=== PATIENT | male | born 1970 | race Caucasian/White ===

== ENCOUNTER 2021-08-09 12:14 | Inpatient (IN) ==
[2021-08-09] MEDS ORDERED: LORazepam 2 MG/4 ML VIAL IV STA (12:27)
[2021-08-09] MEDS ORDERED: MULTI-VITAMIN INFUSION 10 ML, THIAMINE HCL 100 MG, FOLIC ACID 1 MG in SODIUM CHLORIDE 0... IV ONE (12:27)
--- NOTE | 2021-08-09 12:33 | Emergency Department Note ---
History of Present Illness General Chief complaint: Detox Request Stated complaint: DETOX REQUEST,SEIZURES Time Seen by Provider: 08/09/21 12:22 Source: patient Mode of arrival: ambulatory Limitations: no limitations History of Present Illness Maximum Pain Intensity: 5 This patient is an alcoholic, comes in complaining of withdrawal and detox request. He says that his last drink was a couple hours ago has been drinking about a half a gallon a day. He had been sober until about a month ago he has been in detox multiple times has had seizures in the past and was getting shaky so he was worried he could have a seizure again. He has been trying to cut down. He does use marijuana but no other drugs. Denies any suicidal ideations he has had some vomiting. No chest pain or shortness of breath. No focal num bness weakness. Denies aspirin and Tylenol usage. 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 Family History (Updated 08/09/21 @ 17:33 by Radames Sin MD) Mother No problems noted. Social History Smoking Status: Current every day smoker Feels Safe at Home: Yes Immunizations: Past medical historybilateral hip replacement. Alcoholism Social history he drinks heavily. He has been admitted to rehab several times Review of Systems A total of 10 systems reviewed and were otherwise negative Physical Exam Vital Signs Vital Signs - 24 hr 08/09/21 12:15 08/09/21 12:52 08/09/21 13:12 Temperature 36.7 C Temperature Source Temporal Artery Scan Pulse Rate 101 H 88 Pulse Rate from SpO2 Sensor 87 Respiratory Rate 18 17 Blood Pressure 141/87 H 124/82 Blood Pressure Mean 105 96 Pulse Oximetry 95 92 90 Oxygen Delivery Method Room Air Room Air Oxygen Flow Rate Sepsis Recent Fever Within 48 Hours No Sepsis New/Unexplained Change in Mental Status No Sepsis Action Taken by Nursing No Action Required 08/09/21 13:30 08/09/21 14:00 08/09/21 14:30 Temperature Temperature Source Pulse Rate 82 75 103 H Pulse Rate from SpO2 Sensor 81 74 103 H Respiratory Rate 17 14 16 Blood Pressure 109/72 119/79 119/86 Blood Pressure Mean 84 92 97 Pulse Oximetry 93 94 96 Oxygen Delivery Method Nasal Cannula Nasal Cannula Nasal Cannula Oxygen Flow Rate 2 2 2 Sepsis Recent Fever Within 48 Hours Sepsis New/Unexplained Change in Mental Status Sepsis Action Taken by Nursing 08/09/21 15:00 08/09/21 15:30 Temperature Temperature Source Pulse Rate 105 H 85 Pulse Rate from SpO2 Sensor 104 H 85 Respiratory Rate 16 12 Blood Pressure 113/76 Blood Pressure Mean 88 Pulse Oximetry 94 92 Oxygen Delivery Method Nasal Cannula Oxygen Flow Rate 2 Sepsis Recent Fever Within 48 Hours Sepsis New/Unexplained Change in Mental Status Sepsis Action Taken by Nursing General: Well developed well nourished middle-age male who appears shaky but otherwise in no acute distress, breathing comfortably on room air. Normal speech HEENT: Normal cephalic atraumatic. Pupils are equal round and reactive to light. Extraocular movements are intact. Oropharynx is pink with moist mucous membranes. No swelling of the mouth lips or tongue. Neck: Supple with a midline trachea. No meningeal signs or stiffness, no JVD or bruits. No Stridor. Chest: Clear to auscultation bilaterally. No wheezes or rhonchi. No increased work of breathing. Heart: Regular rate and rhythm without murmurs or gallops. Abdomen: Soft nontender, nondistended without rebound guarding or rigidity. Extremities: No cyanosis clubbing or edema. No calf tenderness or assymetry Spine/Back. Non tender to palpation. No CVA tenderness Skin: Good turgor without rashes. Neurologic exam: Cranial nerves two through 12 are intact. Motor and sensation are intact and symmetrical throughout. He does have tremor mostly with movement Course Administered Medications Discontinued Medications Lorazepam (Ativan) 2 mg in 4 mls @ 4 mls/min IV NOW STA Stop: 08/09/21 12:28 Last Admin: 08/09/21 12:39 Dose: 4 mls/min Documented by: [id number] Multivitamins 10 ml/ Thiamine HCl 100 mg/ Folic Acid 1 mg/Sodium Chloride 1,011.2 mls @ 1,011.2 mls/hr IV .Q1H ONE Stop: 08/09/21 13:26 Last Infusion: 08/09/21 14:50 Dose: 0 mls/hr Documented by: [id number] Admin: 08/09/21 13:00 Dose: 1,011.2 mls/hr Documented by: [id number] Phenobarbital Sodium 260 mg/ (Syringe) 4 mls @ 0.8 mls/min IV TODAY@1730 VAISHNAVI Stop: 08/09/21 17:34 Last Admin: 08/09/21 17:58 Dose: 0.8 mls/min Documented by: [id number] Medical Decision Making Differential Diagnosis Alcohol intoxication, alcohol withdrawal, electrolyte or metabolic abnormality, infection, dehydration, cardiac disease Medical Records Attestation: I reviewed the patient's medical records. Home Medications Current Medication List: was personally reviewed by me Laboratory Data Attestation: I reviewed the patient's lab results. Result diagrams: 08/09/21 12:34 08/09/21 12:34 Lab Results 08/09/21 08/09/21 08/09/21 Range/Units 12:34 12:34 12:44 WBC 6.23 (4.8-10.8) K/uL RBC 4.73 (4.7-6.1) M/uL Hgb 16.2 (14.0-18.0) g/dL Hct 46.1 (42-52) % MCV 97.5 (80-100) fL MCH 34.2 H (25-34) pg MCHC 35.1 (32-36) g/dL RDW Std Deviation 60.2 H (36.4-46.3) fL RDW Coeff of Arash 16.7 H (11.5-14.5) % Plt Count 162 (130-400) K/uL MPV 10.1 (7.4-10.4) fL Immature Gran % (Auto) 0.2 % Neut % (Auto) 66.1 % Lymph % (Auto) 21.8 % Bryan % (Auto) 9.8 % Eos % (Auto) 1.3 % Baso % (Auto) 0.8 % Neut # (Auto) 4.12 (1.4-6.5) K/uL Lymph # (Auto) 1.36 (1.2-3.4) K/uL Bryan # (Auto) 0.61 H (0.11-0.59) K/uL Eos # (Auto) 0.08 (0-0.5) K/uL Baso # (Auto) 0.05 (0-0.2) K/uL Immature Gran # (Auto) 0.01 (0.00-0.02) K/uL Sodium 140 (136-145) mmol/L Potassium 3.8 (3.5-5.1) mmol/L Chloride 107 (98-107) mmol/L Carbon Dioxide 22 (21-32) mmol/L Anion Gap 11.0 (3-11) BUN 5 L (7-18) mg/dl Creatinine 0.79 (0.6-1.4) mg/dl Est Cr Clr Drug Dosing Not Reportable Est GFR ( Amer) 123.1 ml/min Est GFR (Non-Af Amer) 106.2 ml/min BUN/Creatinine Ratio 6.7 L (10-20) Glucose 111 H (70-99) mg/dl Calcium 8.7 (8.5-10.1) mg/dl Magnesium 2.2 (1.8-2.4) mg/dl Total Bilirubin 1.1 H (0.2-1) mg/dl AST 224 H (15-37) U/L ALT 151 H (12-78) U/L Alkaline Phosphatase 134 H (45-117) U/L Troponin I < 0.015 (0-0.045) ng/ml Total Protein 7.7 (6.4-8.2) gm/dl Albumin 3.7 (3.4-5.0) gm/dl Globulin 4.0 (2.5-4.0) gm/dl Albumin/Globulin Ratio 0.9 (0.9-2) TSH 0.593 (0.300-4.500) uIu/ml Ethyl Alcohol mg/dL 323.3 H (0-3) mg/dl Imaging Data Attestation: I personally reviewed and interpreted this imaging study as foll ows: My Impression: Chest x-rayno acute infiltrate, failure, pneumothorax seen Radiologist's Impression: Chest X-Ray 08/09/21 12:28 XR chest 1V portable HISTORY: weakness COMPARISON: None. FINDINGS: The lungs are clear. Cardiac silhouette is normal in size. No pleural effusions. No pneumothorax. IMPRESSION: No acute process. ACT 112: Negative or not required by law. Electronically signed by: Amari Jeong M.D. 08/09/2021 1:10 PM ECG Data Attestation: I personally reviewed and interpreted this ECG as follows: Indication: + toxicologic Rate (beats per minute): 94 Rhythm: + normal sinus ECG Intervals/blocks: + Incomplete right bundle branch block ECG [place]: + Normal ECG ST segments: + Normal ST segments ECG Findings: no PACs or no PVCs Comparison ECG Date: no prior available MDM Narrative This patient comes in with alcohol withdrawal type symptoms he appears mildly to moderately shaky. IV access established was given Ativan 2 mg IV. He was also given a banana bag. he was placed on a hall monitor. EKG multiple blood test ing was obtained. He was reassessed frequently. Given his history of seizures a seizure precautions were applied as well. EKG does not show any ischemic changes or ectopy. Chest x-ray was unremarkable. His blood alcohol was well over 300 and he is withdrawing despite this. He has no significant electrolyte or metabolic abnormalities. His LFTs are moderately elevated consistent with alcohol abuse. He did feel much better and was resting more comfortably with the Ativan and was also given a banana bag IV. After the Ativan he did desaturate into the high 80s low 90s when sleeping but did not appear to be any distress he was placed on supplemental oxygen. I do think he needs to be admi tted for alcohol withdrawal. He is also interested in going to rehab. He is from [place] and is traveling and does not have a primary doctor locally. I have consulted [facility] hospitalist as they were on for unassigned and he was seen in ER for these measures. Continuous cardiac monitoring: Orders placed in EMR for continuous hall monitor. Upon my interpretation he was noted to be in normal sinus rhythm with a rate of 80 Impression & Plan Alcohol withdrawal syndrome, Alcohol abuse, Shakiness, Lab test negative for COVID-19 virus, Elevated liver function tests Discharge Plan Visit Data Chief Complaint: Detox Request Stated Complaint: DETOX REQUEST,SEIZURES ED Provider: Chase Singh Discharge Problem: Alcohol withdrawal syndrome, Alcohol abuse, Shakiness, Lab test negative for COVID-19 virus, Elevated liver function tests Discharge Instructions Interventions: ED Discharge Assessment Last Done: 08/09/21 19:25
[2021-08-09 12:40] LABS: Basophils # (auto) 0.05 K/uL (0-0.2); Basophils % (auto) 0.8 %; Eosinophils # (auto) 0.08 K/uL (0-0.5); Eosinophils % (auto) 1.3 %; Hematocrit (blood only) 46.1 % (42-52); Hemoglobin 16.2 g/dL (14.0-18.0); Immature Granulocytes # (auto) 0.01 K/uL (0.00-0.02); Immature Granulocytes % (auto) 0.2 %; Lymphocytes # (auto) 1.36 K/uL (1.2-3.4); Lymphocytes % (auto) 21.8 %; Mean Corpuscular Hemoglobin 34.2 pg (25-34); Mean Corpuscular Hgb Conc 35.1 g/dL (32-36); Mean Corpuscular Volume 97.5 fL (80-100); Mean Platelet Volume 10.1 fL (7.4-10.4); Monocytes # (auto) 0.61 K/uL (0.11-0.59); Monocytes % (auto) 9.8 %; Neutrophils # (auto) 4.12 K/uL (1.4-6.5); Neutrophils % (auto) 66.1 %; Platelet Count 162 K/uL (130-400); RDW Coefficient of Variation 16.7 % (11.5-14.5); RDW Standard Deviation 60.2 fL (36.4-46.3); Red Blood Count 4.73 M/uL (4.7-6.1); White Blood Count 6.23 K/uL (4.8-10.8)
[2021-08-09 13:00] LABS: Alanine Aminotransferase 151 U/L (12-78); Albumin Level 3.7 gm/dl (3.4-5.0); Aspartate Aminotransferase 224 U/L (15-37); BUN Creatinine Ratio 6.7 (10-20); Blood Urea Nitrogen 5 mg/dl (7-18); Calcium 8.7 mg/dl (8.5-10.1); Carbon Dioxide 22 mmol/L (21-32); Chloride 107 mmol/L (98-107); Est GFR (African American) 123.1 ml/min; Est GFR (Non-African American) 106.2 ml/min; Glucose 111 mg/dl (70-99); Magnesium 2.2 mg/dl (1.8-2.4); Potassium 3.8 mmol/L (3.5-5.1); Sodium 140 mmol/L (136-145)
[2021-08-09 13:11] LABS: Albumin Globulin Ratio 0.9 (0.9-2); Alkaline Phosphatase 134 U/L (45-117); Bilirubin,Total 1.1 mg/dl (0.2-1); Thyroid Stimulating Hormone 0.593 uIu/ml (0.300-4.500); Total Protein 7.7 gm/dl (6.4-8.2); Troponin I < 0.015 ng/ml (0-0.045)
--- NOTE | 2021-08-09 13:11 | XRay Report ---
XR chest 1V portable HISTORY: weakness COMPARISON: None. FINDINGS: The lungs are clear. Cardiac silhouette is normal in size. No pleural effusions. No pneumot horax. IMPRESSION: No acute process. ACT 112: Negative or not required by law. Electronically signed by: Amari Jeong M.D. 08/09/2021 1:10 PM
--- NOTE | 2021-08-09 15:38 | History & Physical Report ---
Date of Service August 09, 2021 History of Present Illness Chief Complaint: Withdrawal Primary Care Provider: NO PCP Started drinking again ~1 month or so ago, had been 1/2 gallon vodka per day since october. Travel through Multiple episodes of seizures before Poured out the liquor, came here. Last drink this morning, can't remember what time Feels tremulous +Stomachache -D/C + tremors - bleeding Gabapentin has not helped him in the past. Zofran and ativan have helped with his withdrawal in the past. Medical History: Reviewed Medications: Reviewed. None. Surgical History: Reviewed. Bilat hip replacement. No heart problems. Allergies: Reviewed Social History:Smokes marijuana recreationally. Tobacco 1-2ppd for>20 yrs. Code Status: Full Code. Jasper Snell would be his decision maker, give # Past Med/Surg History Social History Smoking Status: Current every day smoker Feels Safe at Home: Yes Results & Data Results & Data ([facility]) Vital Signs (Past 12 Hours) Vital Signs Temp Pulse Resp BP Pulse Ox 08/09/21 15:00 105 H 16 113/76 94 08/09/21 14:30 103 H 16 119/86 96 08/09/21 14:00 75 14 119/79 94 08/09/21 13:30 82 17 109/72 93 08/09/21 13:12 88 17 124/82 90 08/09/21 12:52 92 08/09/21 12:15 36.7 C 101 H 18 141/87 H 95 PG Care Time/CCT Total # of Minutes Spent Total Time Spent with Patient: Total time spent is greater than 50% in coordination of care (as documented) at patient's floor/unit and/or counseling patient: Coding
[2021-08-09 15:44] LABS: Appearance Urine Clear (Clear); Bacteria Urine Automated Negative (Negative); Bilirubin Urine Negative (Negative); Blood Urine Negative (Negative); Color Urine Dark Yellow; Epithelial Cell Urine Auto 0-5 /lpf (0-5); Glucose Urine UA Negative (Negative); Ketones Urine Trace (Negative); Leukocyte Esterase Urine Negative (Negative); Nitrite Urine Negative (Negative); Protein Urine 1+ (Negative); RBC Urine Automated 0-4 /hpf (0-4); Specific Gravity Urine 1.016 (1.000-1.030); Urobilinogen Urine Negative (Negative); pH Urine 6.5 (4.5-7.5)
[2021-08-09 16:37] LABS: Amphetamines+Metham, Urine Neg (Neg); Barbiturates, Urine Neg (Neg); Benzodiazepine, Urine Neg (Neg); Cocaine, Urine Neg (Neg); MDMA (Ecstacy), Urine Neg (Neg); Methadone, Urine Neg (Neg); Opiate, Urine Neg (Neg); Phencyclidine, Urine Neg (Neg)
[2021-08-09 17:02] LABS: Folate (Folic Acid) > 20.00 ng/ml (>5.38); Vitamin B12 794 pg/ml (193-986)
--- NOTE | 2021-08-09 17:29 | History & Physical Report ---
Date of Service August 09, 2021 Assessment & Plan (1) Alcohol withdrawal syndrome: Plan: Reports severe withdrawal in October with seizures, large Ativan requirements, and "medical coma" for several days. Not intubated though per the patient. - Given patient's severe withdrawals, high Ativan requirements (reportedly), and lack of other medical co-morbidities, he is an excellent candidate for attempt with phenobarbital monotherapy. Multiple studies have shown this is a safe and effective strategy with in fact lower complications rates compared to benzodiazepines. (https://emcrit.org/ibcc/etoh/#phenobarbital_guideline). - Did receive 1 dose of Ativan in the ED; will start with 260 mg IV dose (lower than most guidelines of 10 mg/kg IBW bolus (ie 700 mg). This dose has low risk of respiratory suppression and could be repeated if withdrawal worsens. - Discussed closely with the ED pharmacist. Dose will be given over 5 minute IV push. - RUQ u/s as examine indicates some level of ascites (2) Alcohol abuse: Plan: Drinks 1/2 gallon liquor per day. Has attended AA in the past. Was sober from November until June, but drank again because it reduces his anxiety, and he was "bored." - Once detox is over, would consider referral to rehab - Started thiamine, folic acid, and B12 supplement (3) Alcoholic hepatitis: Plan: AST/ALT were 225/150 on admission. Tbili 1.1 - Order stat coags; unclear Maddrey score at this time, though low Tbili would point away from steroids as beneficial. - Monitor (4) Acute hypoxemic respiratory failure: Plan: Mild; requiring 2L NC at this time. Likely atelectasis as CXR on admission was clear. - Monitor (5) Alcoholic cirrhosis: Plan: Possible diagnosis with ascites on exam, and patient admitted to "mild" liver issues. - No indication of SBP or bleeding at this time. Monitor. - RUQ u/s as above (6) DVT prophylaxis: Plan: SCDs - Hold heparin until PT/PTT returned History of Present Illness Primary Care Provider: NO PCP 50yo M w/ hx of alcohol abuse and possible cirrhosis who presents with request for alcohol detox. He drinks about 1/2 gallon of liquor per day with the last drink being a few hours prior to presentation. He reports that he detoxed in October at a different hospital. During that admission he had at least one seizure and required "bags" of Ativan per him. He notes that he might have "mild" liver issues from his alcohol intake, but denies any known history of cirrhosis, varices, alcoholic hepatitis, or other issues. 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 Family History Mother No problems noted. Social History Smoking Status: Current every day smoker Feels Safe at Home: Yes Review of Systems Review of Systems: All systems reviewed & are unremarkable except as noted in HPI & below Physical Exam Constitutional: WD/WN, vitals as above + morbidly obese and + disheveled; no acute distress Eyes: EOM intact bilaterally; no conjunctival abnormality ENMT: external ear and nose normal, oropharynx normal No tongue fasciculations Neck: trachea midline, no thyromegaly normal visual inspection Respiratory: normal respiratory effort, lungs clear to auscultation no respiratory distress Cardiovascular: RRR, no murmur, no edema Gastrointestinal (Abdomen): Inspection/Auscultation: abdomen normal to inspection; abdomen not distended Musculoskeletal: no cyanosis or clubbing, extremities motor strength 5/5 Skin: no rashes, warm and dry Neurologic: moves all extremities and awake Motor/Sensory: no tremor and no fasciculations Psychiatric: Orientation: alert, oriented to person and cooperative Results & Data Results & Data ([facility]) Vital Signs (Past 12 Hours) Vital Signs Temp Pulse Resp BP Pulse Ox 08/09/21 16:30 82 18 118/82 93 08/09/21 16:00 86 17 130/79 95 08/09/21 15:30 85 12 92 08/09/21 15:00 105 H 16 113/76 94 08/09/21 14:30 103 H 16 119/86 96 08/09/21 14:00 75 14 119/79 94 08/09/21 13:30 82 17 109/72 93 08/09/21 13:12 88 17 124/82 90 08/09/21 12:52 92 08/09/21 12:15 36.7 C 101 H 18 141/87 H 95 Code Status & VTE Plan VTE Prophylaxis Plan VTE Prophylaxis will be ordered: Yes PG Care Time/CCT Total # of Minutes Spent Total Time Spent with Patient: Total time spent is greater than 50% in coordination of care (as documented) at patient's floor/unit and/or counseling patient: Coding Level of Care Code 50672 Initial Inpt Care Lvl 3 Diagnoses Alcohol withdrawal syndrome F10.239 Alcohol abuse F10.10 Alcoholic hepatitis K70.10 Alcoholic cirrhosis K70.30 DVT prophylaxis Z29.9 Acute hypoxemic respiratory failure J96.01
[2021-08-09] MEDS ORDERED: PHENOBARBITAL SODIUM IV SCH (17:30)
[2021-08-09 18:43] LABS: INR 1.1 (0.9-1.1); Partial Thromboplastin Time 26.1 Seconds (21.0-31.0); Prothrombin Time 11.4 Seconds (9.0-12.0)
[2021-08-09] MEDS ORDERED: ACETAMINOPHEN 325 MG TAB PO PRN (21:44)
[2021-08-09] MEDS ORDERED: LORazepam 1 MG/2 ML VIAL IV PRN (21:51)
[2021-08-09] MEDS ORDERED: LORazepam 2 MG/4 ML VIAL ONE (21:56)
[2021-08-09] MEDS ORDERED: PATIENT'S ALLERGY INFO NEEDS ENTERED SCH (22:00)
[2021-08-09] MEDS: THIAMINE HCL 200 MG in SODIUM CHLORIDE 0.9% 50 ML IV SCH (23:20)
[2021-08-10] MEDS ORDERED: ATIVAN IV ALCOHOL WITHDRAWL IV PRN (01:50)
[2021-08-10] MEDS ORDERED: LORazepam 3 MG/6 ML VIAL IV PRN (01:50)
[2021-08-10] MEDS ORDERED: LORazepam 2 MG/4 ML VIAL IV PRN ×2 (01:50→11:21)
[2021-08-10] MEDS ORDERED: LORazepam 1 MG/2 ML VIAL IV PRN ×2 (01:50→11:21)
[2021-08-10 06:11] LABS: Hematocrit (blood only) 44.5 % (42-52); Hemoglobin 15.2 g/dL (14.0-18.0); Mean Corpuscular Hemoglobin 33.8 pg (25-34); Mean Corpuscular Hgb Conc 34.2 g/dL (32-36); Mean Corpuscular Volume 98.9 fL (80-100); Platelet Count 125 K/uL (130-400); RDW Coefficient of Variation 16.5 % (11.5-14.5); RDW Standard Deviation 59.4 fL (36.4-46.3); White Blood Count 5.95 K/uL (4.8-10.8)
[2021-08-10 06:36] LABS: Albumin Level 3.4 gm/dl (3.4-5.0); BUN Creatinine Ratio 7.7 (10-20); Calcium 9.1 mg/dl (8.5-10.1); Creatinine Clr Calc Pharmacy 143.9 ml/min; Est GFR (African American) 127.1 ml/min; Est GFR (Non-African American) 109.7 ml/min; Magnesium 1.9 mg/dl (1.8-2.4); Potassium 3.8 mmol/L (3.5-5.1)
[2021-08-10 06:40] LABS: Albumin Globulin Ratio 0.9 (0.9-2); Bilirubin,Total 2.1 mg/dl (0.2-1); Globulin 3.8 gm/dl (2.5-4.0); Phosphorus 3.3 mg/dl (2.5-4.9); Total Protein 7.2 gm/dl (6.4-8.2)
--- NOTE | 2021-08-10 07:49 | Electrocardiogram Report ---
Test Reason : Blood Pressure : / mmHG Vent. Rate : 094 BPM Atrial Rate : 094 BPM P-R Int : 176 ms QRS Dur : 102 ms QT Int : 378 ms P-R-T Axes : 035 007 032 degrees QTc Int : 472 ms Normal sinus rhythm Incomplete right bundle branch block Cannot rule out Inferior infarct , age undetermined Abnormal ECG No previous ECGs available Confirmed by Law Grant ([id number]) on 08/10/2021 7:49:31 AM Referred By: REFERRED SELF Confirmed By:Andrew Grant
[2021-08-10] MEDS ORDERED: PHENobarbitaL 15 MG TAB PO ONE ×2 (08:15→08:30)
[2021-08-10] MEDS: THIAMINE HCL 200 MG in SODIUM CHLORIDE 0.9% 50 ML IV SCH (08:35)
--- NOTE | 2021-08-10 08:48 | Ultrasound Report ---
ABDOMINAL ULTRASOUND, RIGHT UPPER QUADRANT HISTORY: Right upper quadrant pain.. COMPARISON: None. FINDINGS: Pancreas: Obscured by overlying bowel gas. Liver: The liver is echogenic consistent with fatty change. The liver is enlarged measuring 20 cm in length. Gallbladder: No gallbladder wall thickening. No gallstones. CBD: 4 mm. Right kidney: No hydronephrosis. IMPRESSION: 1. Normal gallbladder. No gallstones. 2. Hepatomegaly demonstrating fatty change. ACT 112: Negative or not required by law. Electronically signed by: Amari Jeong M.D. 08/10/2021 8:47 AM
[2021-08-10] MEDS ORDERED: FOLIC ACID 1 MG TAB PO SCH (09:00)
[2021-08-10] MEDS ORDERED: CYANOCOBALAMIN 500 MCG TABLET (VITAMIN B-12) PO SCH (09:00)
[2021-08-10] MEDS ORDERED: LORazepam 0.5 MG/1 ML VIAL IV PRN (11:21)
--- NOTE | 2021-08-10 11:48 | Hospitalist Progress Note ---
Date of Service August 10, 2021 Assessment & Plan (1) Alcohol withdrawal syndrome: Plan: Reports severe withdrawal in October with seizures, large Ativan requirements, and "medical coma" for several days. Not intubated though per the patient. - Given patient's severe withdrawals, high Ativan requirements (reportedly), and lack of other medical co-morbidities, he is an excellent candidate for attempt with phenobarbital therapy. Multiple studies have shown this is a safe and effective strategy with in fact lower complications rates compared to benzodiazepines. (https://emcrit.org/ibcc/etoh/#phenobarbital_guideline). - Started with 260 mg IV dose in the ER (lower than most guidelines of 10 mg/kg IBW bolus (ie 700 mg). On 08/10, began oral phenobarbital detox protocol as follow: * Phenobarbital 64.8 mg PO QID today * Phenobarbital 64.8 mg PO TID on 08/11 * Phenobarbital 64.8 mg PO BID on 08/12, then stop. * Hold any dose for RASS -1 or below. - Concomitantly, lowered Ativan dosing to 0.5 mg, 1.0 mg, and 2.0 mg for PATRICIA scoring. My logic is as follow: * The patient has stated how he needed "bags" of Ativan for prior detox. He is already using subjective measures to increase his PATRICIA score. Despite needing to be awoke, he reports agitation. He casually says he is hallucinating, but only vaguely says "People are talking to me." when asked what is occurring. Tremor is absent when sleeping, moderate when awake, but also distractible when he was getting his food tray situated. Objective measures of withdrawal such as HR, blood pressure, RR, and perspiration have been stable. * Phenobarbital has sedation and respiratory depression risk, but so do high d ose benzodiazepines. So far, he has been easily arousable and able to maintain conversation and is oriented. Phenobarb doses will be held for any RASS -1 or less. Durations between doses is > 2 - 4 hours which is the time to peak effect of phenobarb, so we should see max effect of prior dose before giving another. * Concomitantly, we are lowering the usual Ativan dosing to avoid stacking effect. * Phenobarb has a longer half-life, reducing "roller coaster" risk of too little, then too much BARBER-receptor activity. For all the above, I think this is the safest and best way for Fears to detox from alcohol. (2) Alcohol abuse: Plan: Drinks 1/2 gallon liquor per day. Has attended AA in the past. Was sober from November until June, but drank again because it reduces his anxiety, and he was "bored." - Once detox is over, would consider referral to rehab - B12/folate both normal. - Started thiamine supplement (3) Alcoholic hepatitis: Plan: AST/ALT were 225/150 on admission. Tbili 1.1 PT normal. - On 08/10, Tbili up to 2.1; however DF still 0. No role for steroids. - RUQ u/s on 08/10 only showed fatty liver. No indication of cirrhosis. - Monitor (4) Acute hypoxemic respiratory failure: Plan: Mild; requiring 2L NC at this time. Likely atelectasis as CXR on admission was clear. - Monitor (5) DVT prophylaxis: Plan: Lovenox 40 mg SQ daily Admission and Anticipated Discharge Date Admission Date: August 09, 2021 Subjective Easily arouses to voice. Reports he is doing "terrible" and felt "terrible" overnight. Reports he has nausea and will probably throw up breakfast, but then wheels it closer to himself and begins eating. No emesis in emesis bag. Tremors resolve when he is distracted by tray. Physical Exam Constitutional: WD/WN, vitals as above + morbidly obese and + disheveled; no acute distress Eyes: EOM intact bilaterally; no conjunctival abnormality ENMT: external ear and nose normal, oropharynx normal Neck: trachea midline, no thyromegaly normal visual inspection Respiratory: normal respiratory effort, lungs clear to auscultation no respiratory distress Cardiovascular: RRR, no murmur, no edema Gastrointestinal (Abdomen): Inspection/Auscultation: abdomen normal to inspection; abdomen not distended Musculoskeletal: no cyanosis or clubbing, extremities motor strength 5/5 Skin: no rashes, warm and dry Neurologic: moves all extremities and awake Motor/Sensory: + tremor (No tremor during sleep; moderate tremor that is distractible while awake) and + fasciculations Psychiatric: Orientation: alert, oriented to person and cooperative Results & Data Results & Data ([facility]) Vital Signs (Past 12 Hours) Vital Signs Temp Pulse Pulse Resp BP Pulse Ox 08/10/21 08:00 37.1 C 94 H 91 H 18 155/85 H 97 08/10/21 04:22 37.2 C 112 H 18 167/93 H 96 08/10/21 01:52 36.7 C 94 H 20 164/83 H 96 08/09/21 23:31 37.1 C 100 H 19 95 PG Care Time/CCT Total # of Minutes Spent Total Time Spent with Patient: Total time spent is greater than 50% in coordination of care (as documented) at patient's floor/unit and/or counseling patient: Coding Level of Care Code 05910 Subseq Hosp Care Lvl 3 Diagnoses Alcohol withdrawal syndrome F10.230 Complication of substance-induced condition: uncomplicated Alcohol abuse F10.10 Alcoholic hepatitis K70.10 Acute hypoxemic respiratory failure J96.01 DVT prophylaxis Z29.9 (1) Alcohol withdrawal syndrome Complication of substance-induced condition: uncomplicated Qualified Code(s): F10.230 - Alcohol dependence with withdrawal, uncomplicated
[2021-08-10] MEDS: ONDANSETRON INJ 2 MG/ML 2 ML VIAL IV PRN ×3 (12:55→21:41)
[2021-08-11] MEDS: ONDANSETRON INJ 2 MG/ML 2 ML VIAL IV PRN ×3 (02:27→14:04)
[2021-08-11] MEDS: ENOXAPARIN INJ 40 MG/0.4 ML SYR SQ SCH (08:40)
[2021-08-11] MEDS: THIAMINE HCL 200 MG in SODIUM CHLORIDE 0.9% 50 ML IV SCH (08:42)
[2021-08-11 11:01] LABS: Hematocrit (blood only) 43.8 % (42-52); Hemoglobin 15.3 g/dL (14.0-18.0); Mean Corpuscular Hemoglobin 34.2 pg (25-34); Mean Corpuscular Hgb Conc 34.9 g/dL (32-36); Mean Platelet Volume 10.5 fL (7.4-10.4); Platelet Count 103 K/uL (130-400); RDW Coefficient of Variation 15.6 % (11.5-14.5); RDW Standard Deviation 56.2 fL (36.4-46.3); Red Blood Count 4.47 M/uL (4.7-6.1); White Blood Count 4.35 K/uL (4.8-10.8)
[2021-08-11 11:15] LABS: INR 1.2 (0.9-1.1); Prothrombin Time 11.9 Seconds (9.0-12.0)
[2021-08-11 11:25] LABS: Albumin Level 3.2 gm/dl (3.4-5.0); BUN Creatinine Ratio 9.6 (10-20); Calcium 9.4 mg/dl (8.5-10.1); Creatinine Clr Calc Pharmacy 128.1 ml/min; Est GFR (African American) 121.2 ml/min; Est GFR (Non-African American) 104.6 ml/min; Magnesium 1.9 mg/dl (1.8-2.4); Potassium 3.8 mmol/L (3.5-5.1)
[2021-08-11 11:28] LABS: Albumin Globulin Ratio 0.8 (0.9-2); Globulin 3.8 gm/dl (2.5-4.0)
--- NOTE | 2021-08-11 17:20 | Hospitalist Progress Note ---
Date of Service August 11, 2021 Assessment & Plan (1) Alcohol withdrawal syndrome: Plan: Reports severe withdrawal in October with seizures, large Ativan requirements, and "medical coma" for several days. Not intubated though per the patient. - Given patient's severe withdrawals, high Ativan requirements (reportedly), and lack of other medical co-morbidities, he is an excellent candidate for attempt with phenobarbital therapy. Multiple studies have shown this is a safe and effective strategy with in fact lower complications rates compared to benzodiazepines. (https://emcrit.org/ibcc/etoh/#phenobarbital_guideline). - Started with 260 mg IV dose in the ER (lower than most guidelines of 10 mg/kg IBW bolus (ie 700 mg). On 08/10, began oral phenobarbital detox protocol as follow: * due to significant sedation will truncate the protocol for lethargy no obvious signs of withdrawal at this time will substitute Neurontin dosing so as to continue post discharge in hopes of less sedation - Concomitantly, lowered Ativan dosing to 0.5 mg, - If patient exhibits rebound would recommend ativan and to stick to Neurontin dosing, my interaction left me concerned about secondary gain and the pt not being in a hurry to be detoxed and leave the hosptial (2) Alcohol abuse: Plan: Drinks 1/2 gallon liquor per day. Has attended AA in the past. Was sober from November until June, but drank again because it reduces his anxiety, and he was "bored." - Once detox is over, would consider referral to rehab, [place] - B12/folate both normal. - Started thiamine supplement, change to po (3) Alcoholic hepatitis: Plan: AST/ALT were 225/150 on admission. Tbili 1.1 PT normal. - On 08/10, Tbili up to 2.1; however DF still 0. No role for steroids. - RUQ u/s on 08/10 only showed fatty liver. No indication of cirrhosis. - Monitor (4) Acute hypoxemic respiratory failure: Plan: Mild; requiring 2L NC at this time. Likely atelectasis as CXR on admission was clear. - Monitor, may be due to sedation from phenobarb (5) DVT prophylaxis: Plan: Lovenox 40 mg SQ daily Admission and Anticipated Discharge Date Admission Date: August 09, 2021 Subjective Met with patient who was sleeping awoke easily discussed with me coherently for a few moments and then went back to sleep. He said he is having hallucinations upper pleasant seeing his friends and his dog. Supposed both with his RN who says most of the he has been sleeping but wakes easily is cooperative follows commands has not had any exhibit any signs of alcohol withdrawal such as tachycardia hypertension does not appear to be in a manic worked up, state anyway. Does have some resting tremor no asterixis Review of Systems Review of Systems: Mild distress and fatigue no headache, no visual changes other that hallucinations no speech or swallowing issues no chest pain, pressure or palpitations no shortness of breath, cough or wheezes no abdominal pain, nausea or vomiting, diarrhea or constipation no dysuria, hematuria or frequency no focal joint pain or swelling no back pain, CVA tenderness or radicular pain no bruising, bleeding or rashes no focal signs of weakness or numbness or altered sensation subjectively claims to have visual and auditory hallucinations Does have some resting tremor no complaints of anxiety or depression.. Physical Exam Physical Exam: The patient appeared well nourished and normally developed. Vital signs as documented. Head exam is normocephalic atraumatic Neck is without JVD, thyromegaly, or carotid bruits. Lungs are clear to auscultation, no focal loss of breath sounds Cardiac exam, Rhythm is regular.. No murmurs, rubs or gallops. Abdominal exam reveals normal bowel sounds, soft non tender, no masses, no defined hepatomegaly, although mentioned on u/s Extremities are nonedematous and both pedal pulses are present Neurologic exam is alert and oriented, no focal loss of strength or sensation, some resting tremor to hands Skin is without bruises or rashes Psychologically is without concerns for anxiety or depression Results & Data Results & Data ([facility]) Vital Signs (Past 12 Hours) Vital Signs Temp Pulse Pulse Resp BP BP Pulse Ox 08/11/21 16:00 98.1 F 84 20 122/84 96 08/11/21 12:12 98.2 F 77 20 103/88 97 08/11/21 08:22 98.6 F 84 20 123/76 93 08/11/21 08:00 95 H PG Care Time/CCT Total # of Minutes Spent Total Time Spent with Patient: Total time spent is greater than 50% in coordination of care (as documented) at patient's floor/unit and/or counseling patient: Coding Level of Care Code 06026 Subseq Hosp Care Lvl 2 Diagnoses Alcohol withdrawal syndrome F10.230 Complication of substance-induced condition: uncomplicated Alcohol abuse F10.10 Alcoholic hepatitis K70.10 Acute hypoxemic respiratory failure J96.01 DVT prophylaxis Z29.9 (1) Alcohol withdrawal syndrome Complication of substance-induced condition: uncomplicated Qualified Code(s): F10.230 - Alcohol dependence with withdrawal, uncomplicated
[2021-08-11] MEDS: NICOTINE POLACRILEX 2 MG GUM MT PRN ×3 (18:04→23:15)
[2021-08-11] MEDS: GABAPENTIN 300 MG CAP PO SCH (20:38)
[2021-08-12] MEDS: NICOTINE POLACRILEX 2 MG GUM MT PRN (01:27)
[2021-08-12] MEDS: ENOXAPARIN INJ 40 MG/0.4 ML SYR SQ SCH (08:32)
[2021-08-12] MEDS: GABAPENTIN 300 MG CAP PO SCH (08:32)
[2021-08-12] MEDS ORDERED: THIAMINE HCL 100 MG TAB PO SCH (09:00)
--- NOTE | 2021-08-12 18:01 | Discharge Summary ---
Date of Service August 12, 2021 Admission HPI Per Admitting Provider 50yo M w/ hx of alcohol abuse and possible cirrhosis who presents with request for alcohol detox. He drinks about 1/2 gallon of liquor per day with the last drink being a few hours prior to presentation. He reports that he detoxed in October at a different hospital. During that admission he had at least one seizure and required "bags" of Ativan per him. He notes that he might have "mild" liver issues from his alcohol intake, but denies any known history of cirrhosis, varices, alcoholic hepatitis, or other issues. 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 Not intubated though per the patient. - Given patient's severe withdrawals, high Ativan requirements (reportedly), and lack of other medical co-morbidities, he is an excellent candidate for attempt with phenobarbital therapy. Multiple studies have shown this is a safe and effective strategy with in fact lower complications rates compared to benzodiazepines. (https://emcrit.org/ibcc/etoh/#phenobarbital_guideline). - Started with 260 mg IV dose in the ER (lower than most guidelines of 10 mg/kg IBW bolus (ie 700 mg). On 08/10, began oral phenobarbital detox protocol as follow: * due to significant sedation will truncate the protocol for lethargy no obvious signs of withdrawal at this time will substitute Neurontin dosing so as to continue post discharge in hopes of less sedation - Concomitantly, lowered Ativan dosing to 0.5 mg, - during my interaction 08/11/21 the pt left me concerned about secondary gain and the pt not being in a hurry to be detoxed and leave the hosptial, once his medications were cut he promptly left AMA (2) Alcohol abuse: Drinks 1/2 gallon liquor per day. Has attended AA in the past. Was sober from November until June, but drank again because it reduces his anxiety, and he was "bored." - Once detox is over, would consider referral to rehab, [place] - B12/folate both normal. - Started thiamine supplement, recommended po vitamins (3) Alcoholic hepatitis: AST/ALT were 225/150 on admission. Tbili 1.1 PT normal. - On 08/10, Tbili up to 2.1; however DF still 0. No role for steroids. - RUQ u/s on 08/10 only showed fatty liver. No indication of cirrhosis. -recommend abstinence (4) Acute hypoxemic respiratory failure: resolved, may have been from sedation Total Time Total Time Spent Total Time Spent (In Minutes): less than 30 minutes were required as pt left AMA Discharge Plan Discharge Items Patient Disposition: Against Medical Advice Reason For Visit: DETOX REQUEST,SEIZURES Follow-up/Referrals: PCP,NO [Primary Care Provider] - Stand-Alone Forms: [facility], Smoking Cessation Admission Data Admit Date/Time: 08/09/21 15:40 Attending Provider: Jeffrey Naranjo Admit Provider: Radames Sin Primary Care Provider: PCP,NO Other Providers: Mauricio Dunaway Other Interventions: Discharge Summary Assessment (RN) Last Done: 08/12/21 10:47 Coding Level of Care Code D/C DAY MANAGEMENT <30 MINS Diagnoses Alcohol withdrawal syndrome F10.230 Complication of substance-induced condition: uncomplicated Alcohol abuse F10.10 Alcoholic hepatitis K70.10 Acute hypoxemic respiratory failure J96.01
[2021-08-13 08:01] LABS: Marijuana Quant, GCMS Urine 162 ng/mL (<5)
== END 2021-08-12 10:45 | disposition left against medical advice (07) | DRG 894 ==
LOC: ED 12:14 → EDINP 15:40 → SUATTDRO 15:40 → 2S 20:57 → 2N 08-11 13:31